=== PATIENT | female | born 1965 | race Caucasian/White ===

== ENCOUNTER 2017-03-08 09:10 | Day surgery (SDC) | payer BC, OTHER ==
[2017-03-04 11:06] VITALS: BMI 35.5
[2017-03-08] MEDS ORDERED: PROPOFOL 20 ML ONE ×2 (09:19)
[2017-03-08 12:48] VITALS: TEMP 97.8
[2017-03-08 12:51] VITALS: BP 109/77; PULSE 58
== END 2017-03-08 13:05 | disposition home or self-care (01) ==
LOC: FASU-ENDO 09:10
PROVIDERS: ATTEND Internal Medicine Gastroenterology
PROC: 0DJD8ZZ Inspection of Lower Intestinal Tract, Via Natural or Artificial Opening Endoscopic (ICD-10-PCS; principal; 2017-03-08 11:49)
DX: Z12.11 Encounter for screening for malignant neoplasm of colon (principal)
CPT/HCPCS: 84703